=== PATIENT | female | born 1935 | race Caucasian/White ===

== ENCOUNTER → 2016-07-11 17:21 | Outpatient (CLI) | payer MEDICARE ==
[2009-12-15 12:35] VITALS: BMI 32.2
== END | disposition home or self-care (01) ==
LOC: D.MAMMO 09:30
DX: R92.8 Other abnormal and inconclusive findings on diagnostic imaging of breast (principal)

== ENCOUNTER → 2016-11-05 11:08 | Outpatient (CLI) | payer MEDICARE ==
[2009-12-15 12:35] VITALS: BMI 32.2
== END | disposition home or self-care (01) ==
LOC: D.MRI 11:08
DX: M25.511 Pain in right shoulder (principal)

== ENCOUNTER → 2017-08-15 14:04 | Outpatient (CLI) | payer MEDICARE ==
[2009-12-15 12:35] VITALS: BMI 32.2
== END | disposition home or self-care (01) ==
LOC: D.MAMMO 07-15 10:00
DX: Z12.31 Encounter for screening mammogram for malignant neoplasm of breast (principal)